=== PATIENT | female | born 1970 ===

== ENCOUNTER → 2021-04-30 09:47 | Outpatient (CLI) | payer OTHER ==
[~2021-04-30 09:47] MED LIST: MOTRIN800 MG PO; NORFLEX100 MG PO; TORADOL10 MG PO
== END | disposition home or self-care (01) ==
LOC: NUCLEAR 08:00
PROVIDERS: ATTEND Specialist
DX: I87.2 Venous insufficiency (chronic) (peripheral) (principal)

== ENCOUNTER 2021-05-01 08:11 | Outpatient (CLI) | payer OTHER | END 2021-05-01 08:12 | disposition home or self-care (01) | LOC: NUCLEAR 08:11 | PROVIDERS: ATTEND Specialist | DX: I21.01 ST elevation (STEMI) myocardial infarction involving left main coronary artery (principal); M81.0 Age-related osteoporosis without current pathological fracture; I73.9 Peripheral vascular disease, unspecified ==

== ENCOUNTER 2023-04-01 08:47 | Outpatient (CLI) | payer OTHER | END 2023-04-01 09:00 | disposition home or self-care (01) | LOC: RAD 08:47 | PROVIDERS: ATTEND Orthopaedic Surgery | DX: M25.561 Pain in right knee (principal); S90.01XD Contusion of right ankle, subsequent encounter; M25.522 Pain in left elbow ==

== ENCOUNTER → 2023-07-10 09:34 | Outpatient (CLI) | payer OTHER | END | disposition home or self-care (01) | LOC: LAB 09:34 | PROVIDERS: ATTEND Orthopaedic Surgery | DX: M85.9 Disorder of bone density and structure, unspecified (principal); E83.42 Hypomagnesemia; E56.1 Deficiency of vitamin K; E88.89 Other specified metabolic disorders; M81.8 Other osteoporosis without current pathological fracture; E21.3 Hyperparathyroidism, unspecified ==